=== PATIENT | male | born 1940 | race Caucasian/White ===

== ENCOUNTER → 2017-03-26 | Day surgery (SDC) | payer OTHER ==
[2017-02-09 10:37] VITALS: Ht 180.3 cm; Wt 73.6 kg
[~2017-03-26] VITALS: Ht 180.3 cm; Wt 73.6 kg
[~2017-03-26] MED LIST: ASPCH81X PO; ATOR-24 PO; CLOP1TAB15 PO; DSY/150 PO; FINA5TAB PO; FRS/40 PO; LIRA18IN SC; METF1TAB53 PO; METO25TA3 PO; MISCCAP80 PO; MORP20SO PO; MULT-190 PO; OMEP40CA41 PO; PHEN-905 PO; POTA10CA28 PO; QUET1TAB32 PO; SENN-61 PO; SPRIN/30 INH; VNTHFA/IN INH; ZOLP10TA PO; [UNRECOGNIZED DRUG - CODE] PO
== END | disposition home or self-care (01) ==
LOC: EDSTATUS 02-23 10:00 → C.PAT 11:45
PROVIDERS: ATTEND Ophthalmology
DX: H26.9 Unspecified cataract (principal)